=== PATIENT | male | born 1980 | race African-American/Black ===

== ENCOUNTER 2020-04-27 22:08 | Emergency (ER) | payer SELFPAY ==
[~2020-04-27] VITALS: Ht 188 cm; Wt 88.6 kg
[~2020-04-27 22:08] MED LIST: NO HOME MEDICATIONS
[2020-04-27 22:16] VITALS: BP 183/100; TEMP 98.1
[2020-04-27] MEDS ORDERED: BLOOD PRESSURE MED (22:44)
[2020-04-27 22:55] VITALS: PULSE 82
== END 2020-04-27 22:52 | disposition home or self-care (01) ==
LOC: COL.ER 22:08
DX: S00.211A Abrasion of right eyelid and periocular area, initial encounter (principal); Y92.59 Other trade areas as the place of occurrence of the external cause; Y99.0 Civilian activity done for income or pay; X58.XXXA Exposure to other specified factors, initial encounter

== ENCOUNTER 2024-06-09 03:23 | Observation (INO) | payer SELFPAY ==
[~2024-06-09] VITALS: Ht 188 cm; Wt 87.4 kg
[~2024-06-09 03:23] MED LIST changes: +BLOOD PRESSURE MED
[2024-06-09] MEDS ORDERED: hydrALAZINE 20 MG/ML 1 ML VIAL IV ONE (03:45)
[2024-06-09 04:07] LABS: BASO # 0.1 K/mm3 (0.0-0.2); BASO % 0.9 % (0.0-2.0); EOS # 0.5 K/mm3 (0.0-0.7); EOS % 9.3 % (0.0-4.0); GRAN # 2.4 K/mm3 (1.4-6.5); GRAN % 43.8 % (42.2-75.2); HEMATOCRIT 43.3 % (42.0-52.0); HEMOGLOBIN 14.4 g/dl (13.5-18.0); LYMPH # 1.9 K/mm3 (1.2-3.4); LYMPH % 35.4 % (20.0-51.0); MEAN CELL VOLUME 84 fl (80.0-100.0); MEAN CORPUSCULAR HEMOGLOBIN 28 pg (27-31); MEAN CORPUSCULAR HGB CONC 33 g/dl (33.0-37.0); MEAN PLATELET VOLUME 10.4 fl (7.4-10.4); MONO # 0.6 K/mm3 (0.1-0.6); MONO % 10.4 % (1.7-9.3); PLATELET COUNT 275 K/mm3 (130-400); RED BLOOD COUNT 5.15 M/mm3 (4.20-5.60); REDCELL DISTRIBUTION WIDTH-CV 13.1 % (11.5-14.5)
[2024-06-09 04:08] LABS: INR 1.1 (0.8-3.0); PROTHROMBIN TIME 11.8 SECONDS (9.7-12.8)
[2024-06-09 04:11] LABS: PARTIAL THROMBOPLASTIN TIME 29.9 SECONDS (26.0-37.0)
[2024-06-09] MEDS ORDERED: Ondansetron 4 MG/2 ML VIAL IV ONE (04:15)
[2024-06-09 04:23] LABS: ALANINE AMINOTRANSFERASE 31 U/L (0-55); ALBUMIN 4.2 g/dL (3.5-5.0); ALKALINE PHOSPHATASE 96 U/L (40-150); ANION GAP 12 mmol/L (7-16); AST,SGOT 32 U/L (5-34); BILIRUBIN,TOTAL 0.6 mg/dL (0.2-1.2); BLOOD UREA NITROGEN 13 mg/dL (9-21); CALCIUM 9.5 mg/dL (8.4-10.2); CHLORIDE 106 mEq/L (98-107); CREATININE, serum 1.13 mg/dL (0.72-1.25); GLUCOSE 98 mg/dL (70-99); POTASSIUM 3.4 mEq/L (3.5-4.5); SODIUM 139 mEq/L (136-145); TOTAL PROTEIN 7.1 g/dl (6.2-8.1)
[2024-06-09 04:30] LABS: TROPONIN-I < 0.010 ng/mL (0.00-0.033)
[2024-06-09] MEDS ORDERED: NS 1,000 ML IV ONE (04:30)
[2024-06-09] MEDS ORDERED: diphenhydrAMINE 50 MG/ML 1 ML VIAL IV ONE (04:30)
[2024-06-09] MEDS ORDERED: Ketorolac 15 MG/ML VIAL IV ONE (04:30)
[2024-06-09] MEDS ORDERED: Iohexol 300 - 100 ML VIAL IV ONE (05:31)
[2024-06-09] MEDS ORDERED: NS 50 ML IV ONE (05:32)
[2024-06-09] MEDS ORDERED: Acetaminophen 325 MG TAB PO PRN (08:00)
[2024-06-09] MEDS ORDERED: Docusate Sodium 100 MG CAP PO PRN (08:00)
[2024-06-09] MEDS ORDERED: Polyethylene Glycol 3350 17 GM PDS PO PRN (08:00)
[2024-06-09] MEDS ORDERED: Ondansetron 4 MG/2 ML VIAL IV PRN (08:00)
--- NOTE | 2024-06-09 08:12 | NUR ---
Pt arrived to medical floor from ED by wheelchair. Report received from EFREN Perez. Admission assessment and intake completed. Pt reports that he does not take any home medications. INT to Rt and Lt AC patent with no swelling, redness, or drainage. Oriented pt to room, call light, and bathroom. Pt denies pain rating 0/10. Neuro check completed. Pt ambulates independently with no complications. Pt has no request at this time. Call light within reach.
[2024-06-09] MEDS ORDERED: Famotidine 20 MG TAB PO SCH (09:00)
[2024-06-09 09:47] LABS: CHOLESTEROL RISK RATIO 2.7
--- NOTE | 2024-06-09 10:57 | NUR ---
SW met with patient to complete initial assessment for discharge planning. 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 Patient lists his grandmother Luli Douglas ([phone]) as his emergency contact. Patient does not have a PCP and is uninsured. He denies using any DME. Patient uses [facility] pharmacy. Patient is listed to use marijuana daily, he states that he only used minimally with the last use over two weeks ago. He does not want to use again in the future. Discharge plan is to return home. Patient states he drove himself to hospital and will drive himself home. Discharge plan: Home
[2024-06-09 11:46] VITALS: BP 187/102; PULSE 65; TEMP 98.3
[2024-06-09] MEDS ORDERED: Clopidogrel 75 MG TAB PO SCH (13:45)
[2024-06-09] MEDS ORDERED: Lisinopril 20 MG TAB PO SCH (13:52)
[2024-06-09 15:12] VITALS: BP 162/99; PULSE 77; TEMP 99
[2024-06-09] MEDS ORDERED: PLAVIX 75MG TAB75 MG PO (15:52)
[2024-06-09] MEDS ORDERED: LIPITOR 80MG80 MG PO (15:53)
[2024-06-09] MEDS ORDERED: ZESTRIL 20MG TA20 MG PO (15:53)
[2024-06-09] MEDS ORDERED: ASPIRIN E.C. 8181 MG PO (15:53)
[2024-06-09 16:09] VITALS: BP_SYST 162
--- NOTE | 2024-06-09 17:06 | NUR ---
Discharge instructions provided to pt and pt verbalized understanding of discharge paperwork. INT to Lt and Rt AC discontinued by EFREN Gonzalez. Telemetry discontinued. Pt is leaving facility back to home, driving himself.
[2024-06-09] MEDS ORDERED: Atorvastatin 80 MG TAB PO SCH (21:00)
== END 2024-06-09 17:09 | disposition home or self-care (01) ==
LOC: COL.ER 03:23 → MEDICAL 06:28
PROVIDERS: Emergency Medicine; ADMIT Internal Medicine
DX: I63.9 Cerebral infarction, unspecified (principal); I10 Essential (primary) hypertension; E78.5 Hyperlipidemia, unspecified; E05.90 Thyrotoxicosis, unspecified without thyrotoxic crisis or storm; I34.0 Nonrheumatic mitral (valve) insufficiency; F12.90 Cannabis use, unspecified, uncomplicated; T46.4X6A Underdosing of angiotensin-converting-enzyme inhibitors, initial encounter; Z91.128 Patient's intentional underdosing of medication regimen for other reason; Z87.891 Personal history of nicotine dependence
CPT/HCPCS: G0378; J0360; J1200; J1885; J2405; J2765; J7030; Q9967